=== PATIENT | male | born 1945 | race Caucasian/White ===

== ENCOUNTER 2016-08-12 14:12 | Emergency (ER) | payer OTHER ==
[~2016-08-12] VITALS: Ht 165.1 cm; Wt 56.2 kg
[2016-08-12 14:26] VITALS: BP 95/58; PULSE 78; RESP 16; TEMP 98.1; O2SAT 96
--- NOTE | 2016-08-12 14:34 | NUR ---
Patient to ER bed 02 to gown for evaluation. Side rails up. Report given to TIMOTHY Verdugo.
--- NOTE | 2016-08-12 14:53 | NUR ---
c/o right ear tinnitus,decresed hearing since Wednesday.hicup for three weeks. A&O,no distress noted.
--- NOTE | 2016-08-12 15:13 | NUR ---
Dr. Ch at bedside for evaluation
[2016-08-12 15:40] VITALS: BP 131/68; PULSE 85; RESP 16; TEMP 98.1; O2SAT 99
--- NOTE | 2016-08-12 15:40 | NUR ---
Patient given written and verbal discharge instructions and verbalizes understanding. ER MD discussed with patient the results and treatment provided. Given copies of tests performed in ER. Patient in stable condition. ID arm band removed. Rx of TRAZODONE given. Patient educated on pain management and to follow up with PMD. Pain Scale 0/10 Opportunity for questions provided and answered.
== END 2016-08-12 15:40 | disposition home or self-care (01) ==
LOC: SED 14:12
DX: R06.6 Hiccough (principal); H92.01 Otalgia, right ear; E11.9 Type 2 diabetes mellitus without complications; Z88.0 Allergy status to penicillin
CPT/HCPCS: 99283

== ENCOUNTER 2016-09-20 10:47 | Emergency (ER) | payer OTHER ==
[~2016-09-20] VITALS: Ht 165.1 cm; Wt 56.7 kg
[2016-09-20 10:58] VITALS: BP_SYST 134
--- NOTE | 2016-09-20 10:59 | NUR ---
DR. CARRILLO EXAMINING PT.
--- NOTE | 2016-09-20 11:02 | NUR ---
AMBULATED TO BED 6
--- NOTE | 2016-09-20 11:06 | NUR ---
Pt presents to ED c/o multiple bites from dog. Pt AAOx 4 occitan speaking only.Pt bitten by friend's dog. Lac noted to lower lip and skin tear to R cheek /multiple punctures on BLE.
[2016-09-20] MEDS ORDERED: BACITRACIN 1 GM OINT TP ONE (11:15)
--- NOTE | 2016-09-20 11:15 | NUR ---
Pt reports possible syncope s/p fall.
--- NOTE | 2016-09-20 11:20 | NUR ---
wounds cleansed. areas prepped for wound repair.
[2016-09-20] MEDS ORDERED: LIDOCAINE 1% 10 MG/ML, 20 ML MDV INJ ONE (11:45)
--- NOTE | 2016-09-20 11:47 | NUR ---
Pt receiving wound repair.
--- NOTE | 2016-09-20 12:00 | NUR ---
ANIMAL BITE FORM FAXED TO [facility].
[2016-09-20 12:50] VITALS: BP_SYST 134
--- NOTE | 2016-09-20 12:50 | NUR ---
Patient given written and verbal discharge instructions and verbalizes understanding. ER MD discussed with patient the results and treatment provided. Given copies of tests performed in ER. Patient in stable condition. ID arm band removed. Rx of DOXYCYCLINE given. Patient educated on pain management and to follow up with PMD. Pain Scale 0. Opportunity for questions provided and answered.
== END 2016-09-20 12:50 | disposition home or self-care (01) ==
LOC: SED 10:47
DX: S01.511A Laceration without foreign body of lip, initial encounter (principal); S70.311A Abrasion, right thigh, initial encounter; S50.811A Abrasion of right forearm, initial encounter; R03.0 Elevated blood-pressure reading, without diagnosis of hypertension; E11.9 Type 2 diabetes mellitus without complications; H40.9 Unspecified glaucoma; Z88.0 Allergy status to penicillin; W54.0XXA Bitten by dog, initial encounter; Y93.89 Activity, other specified; Y99.8 Other external cause status; Y92.89 Other specified places as the place of occurrence of the external cause
CPT/HCPCS: 40650; 70450; 99284; J2001

== ENCOUNTER 2016-11-07 16:35 | Inpatient (IN) | payer OTHER ==
[~2016-11-07] VITALS: Ht 165.1 cm; Wt 54.4 kg
[2016-11-07 16:45] VITALS: BP_SYST 99
[2016-11-07] MEDS ORDERED: KETOROLAC TROMETHAMINE 15 MG VIAL IVP ONE (17:15)
[2016-11-07] MEDS ORDERED: ONDANSETRON HCL 4 MG/2 ML VIAL IVP ONE (17:15)
[2016-11-07] MEDS ORDERED: METOCLOPRAMIDE HCL 10 MG/2 ML VIAL IVP ONE (17:15)
[2016-11-07 17:21] LABS: BILIRUBIN,URINE NEGATIVE (NEGATIVE); BLOOD, URINE NEGATIVE (NEGATIVE); CLARITY/URINE CLEAR (CLEAR); COLOR,URINE YELLOW (YELLOW); GLUCOSE,URINE NEGATIVE (NEGATIVE); KETONES,URINE TRACE (NEGATIVE); LEUKOCYTE ESTERASE ,URINE NEGATIVE (NEGATIVE); NITRITE, URINE NEGATIVE (NEGATIVE); PROTEIN URINE NEGATIVE (NEGATIVE); UROBILINOGEN,URINE 0.2 (0.2-1.0)
[2016-11-07] MEDS ORDERED: NACL 0.9% 1,000 ML IV ONE (17:30)
[2016-11-07 17:49] LABS: BASOPHILS # (AUTO) 0.1 K/uL (0.0-0.2); BASOPHILS % (AUTO) 0.9 % (0.0-2.0); EOSINOPHILS % (AUTO) 0.3 % (0.0-4.0); HEMATOCRIT 52.5 % (36-54); LYMPHOCYTES # (AUTO) 1.9 K/uL (1.0-5.5); LYMPHOCYTES % (AUTO) 12.2 % (20.5-51.5); MEAN CORPUSCULAR HEMOGLOBIN 30 pg (27-31); MEAN CORPUSCULAR HGB CONC 32 % (32-36); MEAN CORPUSCULAR VOLUME 92 fL (79.0-98.0); MONOCYTES # (AUTO) 0.5 K/uL (0.0-1.0); NEUTROPHILS # (AUTO) 12.7 K/uL (1.8-7.7); NEUTROPHILS % (AUTO) 83.6 % (40.0-70.0); PLATELET COUNT (AUTO) 196 K/uL (130-430); RED CELL DISTRIBUTION WIDTH 11.9 % (9.0-15.0); WHITE BLOOD COUNT (AUTO) 15.2 K/uL (4.8-10.8)
[2016-11-07 17:55] LABS: PROTHROMBIN TIME 10.5 SECS (9.5-12.5)
[2016-11-07 18:42] LABS: ANION GAP 7 (5-15); CALCIUM 9.7 mg/dL (8.4-11.0); CHLORIDE 101 mmol/L (98-107); CREATININE 1.03 mg/dL (0.55-1.30); GLUCOSE 150 mg/dL (70-99); POTASSIUM 3.5 mmol/L (3.5-5.1); SODIUM SERUM 136 mmol/L (136-145); UREA NITROGEN, BLOOD 16 mg/dL (8-21)
[2016-11-07 18:47] LABS: ALANINE AMINOTRANSFERASE 28 U/L (12-78); ALBUMIN 4.9 g/dL (3.4-4.8); AMYLASE 76 U/L (0-100); ASPARTATE AMINOTRANSFERASE 23 U/L (10-37); LIPASE 219 U/L (73-393); TOTAL BILIRUBIN 0.6 mg/dL (0.0-1.0); TOTAL PROTEIN, SERUM 8.4 g/dL (6.4-8.3)
[2016-11-07] MEDS ORDERED: metroNIDAZOLE 500 mg/NS 100 ML IV ONE (19:00)
[2016-11-07] MEDS ORDERED: LEVOFLOXACIN 500 MG/D5W 100 ML IV ONE (19:00)
[2016-11-07] MEDS ORDERED: ACETAMINOPHEN 325 MG TABLET PO PRN (19:15)
[2016-11-07] MEDS: D5/0.45 NS 1,000 ML IV SCH (19:30)
[2016-11-07] MEDS ORDERED: GLU500 PO (19:51)
[2016-11-07] MEDS ORDERED: INSULIN REGULAR, HUMAN 100 UNITS/ML, 10 ML VIAL (novoLIN R) SUBCUT PRN (20:00)
[2016-11-08] VITALS (7 sets, daily range): BP systolic 107–131
[2016-11-08] MEDS: D5/0.45 NS 1,000 ML IV SCH ×2 (03:44→13:00)
[2016-11-08 07:09] LABS: BASOPHILS # (AUTO) 0.2 K/uL (0.0-0.2); BASOPHILS % (AUTO) 1.4 % (0.0-2.0); HEMATOCRIT 44.7 % (36-54); HEMOGLOBIN 14.6 g/dL (14.0-18.0); LYMPHOCYTES # (AUTO) 1.3 K/uL (1.0-5.5); LYMPHOCYTES % (AUTO) 10.7 % (20.5-51.5); MEAN CORPUSCULAR HEMOGLOBIN 30 pg (27-31); MEAN CORPUSCULAR HGB CONC 33 % (32-36); MEAN CORPUSCULAR VOLUME 91 fL (79.0-98.0); MONOCYTES # (AUTO) 0.6 K/uL (0.0-1.0); MONOCYTES % (AUTO) 5.3 % (1.7-9.3); NEUTROPHILS % (AUTO) 82.6 % (40.0-70.0); PLATELET COUNT (AUTO) 161 K/uL (130-430); RED BLOOD CELL COUNT(AUTO) 4.92 MIL/uL (4.2-6.2); RED CELL DISTRIBUTION WIDTH 11.7 % (9.0-15.0); WHITE BLOOD COUNT (AUTO) 12.1 K/uL (4.8-10.8)
[2016-11-08 07:26] LABS: ANION GAP 6 (5-15); CHLORIDE 104 mmol/L (98-107); CREATININE 1.04 mg/dL (0.55-1.30); GLUCOSE 218 mg/dL (70-99); POTASSIUM 3.5 mmol/L (3.5-5.1); SODIUM SERUM 136 mmol/L (136-145); UREA NITROGEN, BLOOD 15 mg/dL (8-21)
[2016-11-08] MEDS ORDERED: chlorproMAZINE HCL 50 MG/ 2 ML AMP IM PRN (08:30)
[2016-11-08] MEDS: PANTOPRAZOLE SODIUM 40 MG/VIAL (PROTONIX) IVP SCH (08:33)
[2016-11-08] MEDS: LEVOFLOXACIN 500 MG/D5W 100 ML IV SCH (20:00)
[2016-11-08] MEDS: ONDANSETRON HCL 4 MG/2 ML VIAL IVP PRN (21:07)
[2016-11-09] MEDS: D5/0.45 NS 1,000 ML IV SCH ×2 (00:07→13:15)
[2016-11-09] MEDS: ONDANSETRON HCL 4 MG/2 ML VIAL IVP PRN (02:33)
[2016-11-09] MEDS: MORPHINE 2 MG/ML INJ. SYRINGE IVP PRN (02:34)
[2016-11-09 04:31] VITALS: BP_SYST 105
[2016-11-09 06:43] LABS: BASOPHILS % (AUTO) 0.3 % (0.0-2.0); EOSINOPHILS # (AUTO) 0.1 K/uL (0.0-0.4); EOSINOPHILS % (AUTO) 0.7 % (0.0-4.0); HEMATOCRIT 42.4 % (36-54); LYMPHOCYTES # (AUTO) 1.9 K/uL (1.0-5.5); LYMPHOCYTES % (AUTO) 22.6 % (20.5-51.5); MEAN CORPUSCULAR HEMOGLOBIN 31 pg (27-31); MEAN CORPUSCULAR HGB CONC 33 % (32-36); MEAN CORPUSCULAR VOLUME 93 fL (79.0-98.0); MONOCYTES # (AUTO) 0.5 K/uL (0.0-1.0); MONOCYTES % (AUTO) 5.8 % (1.7-9.3); NEUTROPHILS # (AUTO) 5.8 K/uL (1.8-7.7); NEUTROPHILS % (AUTO) 70.6 % (40.0-70.0); PLATELET COUNT (AUTO) 157 K/uL (130-430); RED BLOOD CELL COUNT(AUTO) 4.57 MIL/uL (4.2-6.2)
[2016-11-09 07:06] LABS: WHITE BLOOD COUNT (AUTO) 8.3 K/uL (4.8-10.8)
[2016-11-09 07:28] LABS: ALANINE AMINOTRANSFERASE 16 U/L (12-78); ANION GAP 5 (5-15); ASPARTATE AMINOTRANSFERASE 14 U/L (10-37); CALCIUM 7.7 mg/dL (8.4-11.0); CHLORIDE 108 mmol/L (98-107); CREATININE 1.02 mg/dL (0.55-1.30); GLUCOSE 187 mg/dL (70-99); POTASSIUM 3.7 mmol/L (3.5-5.1); SODIUM SERUM 141 mmol/L (136-145); TOTAL BILIRUBIN 0.9 mg/dL (0.0-1.0); UREA NITROGEN, BLOOD 8 mg/dL (8-21)
[2016-11-09 08:00] VITALS: BP_SYST 110
[2016-11-09] MEDS ORDERED: GASTROGRAFIN 120 ML ONE (09:06)
[2016-11-09] MEDS: PANTOPRAZOLE SODIUM 40 MG/VIAL (PROTONIX) IVP SCH (13:11)
[2016-11-09 16:56] VITALS: BP_SYST 123
[2016-11-09 20:11] VITALS: BP_SYST 120
[2016-11-09] MEDS: LEVOFLOXACIN 500 MG/D5W 100 ML IV SCH (20:11)
[2016-11-09] MEDS: INSULIN ASPART 100 UNITS/ML, 10 ML VIAL (NovoLOG) SUBCUT PRN (21:05)
[2016-11-10 00:16] VITALS: BP_SYST 121
[2016-11-10] MEDS: D5/0.45 NS 1,000 ML IV SCH ×3 (01:28→12:00)
[2016-11-10 04:21] VITALS: BP_SYST 112
[2016-11-10] MEDS: INSULIN ASPART 100 UNITS/ML, 10 ML VIAL (NovoLOG) SUBCUT PRN (06:18)
[2016-11-10 06:42] LABS: ANION GAP 4 (5-15); CALCIUM 8.1 mg/dL (8.4-11.0); CHLORIDE 107 mmol/L (98-107); CREATININE 0.94 mg/dL (0.55-1.30); GLUCOSE 191 mg/dL (70-99); POTASSIUM 3.4 mmol/L (3.5-5.1); SODIUM SERUM 140 mmol/L (136-145); UREA NITROGEN, BLOOD 7 mg/dL (8-21)
[2016-11-10 06:44] LABS: BASOPHILS % (AUTO) 0.3 % (0.0-2.0); EOSINOPHILS # (AUTO) 0.1 K/uL (0.0-0.4); EOSINOPHILS % (AUTO) 0.9 % (0.0-4.0); HEMATOCRIT 41.1 % (36-54); HEMOGLOBIN 13.7 g/dL (14.0-18.0); LYMPHOCYTES # (AUTO) 1.8 K/uL (1.0-5.5); LYMPHOCYTES % (AUTO) 21.4 % (20.5-51.5); MEAN CORPUSCULAR HEMOGLOBIN 31 pg (27-31); MEAN CORPUSCULAR HGB CONC 33 % (32-36); MEAN CORPUSCULAR VOLUME 91 fL (79.0-98.0); MONOCYTES # (AUTO) 0.6 K/uL (0.0-1.0); MONOCYTES % (AUTO) 7.4 % (1.7-9.3); NEUTROPHILS # (AUTO) 5.7 K/uL (1.8-7.7); PLATELET COUNT (AUTO) 157 K/uL (130-430); RED BLOOD CELL COUNT(AUTO) 4.49 MIL/uL (4.2-6.2); RED CELL DISTRIBUTION WIDTH 11.9 % (9.0-15.0); WHITE BLOOD COUNT (AUTO) 8.2 K/uL (4.8-10.8)
[2016-11-10 08:00] VITALS: BP_SYST 122
[2016-11-10] MEDS: PANTOPRAZOLE SODIUM 40 MG/VIAL (PROTONIX) IVP SCH (08:27)
[2016-11-10 12:31] VITALS: BP_SYST 109
[2016-11-10] MEDS ORDERED: NA PHOS,M-B/NA PHOS,DI-BA 118 ML (FLEET ENEMA) RC PRN (15:00)
[2016-11-10 16:18] VITALS: BP_SYST 141
[2016-11-10] MEDS: LEVOFLOXACIN 500 MG/D5W 100 ML IV SCH (17:54)
[2016-11-10] MEDS: LACTOBACILLUS RHAMNOSUS GG 1 CAP CAPSULE PO SCH (21:18)
[2016-11-10 21:34] VITALS: BP_SYST 107
[2016-11-11 00:26] VITALS: BP_SYST 118
[2016-11-11 04:11] VITALS: BP_SYST 118
[2016-11-11] MEDS: D5/0.45 NS 1,000 ML IV SCH ×3 (05:53→21:13)
[2016-11-11] MEDS: INSULIN ASPART 100 UNITS/ML, 10 ML VIAL (NovoLOG) SUBCUT PRN (05:55)
[2016-11-11 06:26] LABS: ANION GAP 5 (5-15); CHLORIDE 107 mmol/L (98-107); CREATININE 0.94 mg/dL (0.55-1.30); GLUCOSE 173 mg/dL (70-99); POTASSIUM 3.1 mmol/L (3.5-5.1); SODIUM SERUM 140 mmol/L (136-145); UREA NITROGEN, BLOOD 7 mg/dL (8-21)
[2016-11-11 06:32] LABS: BASOPHILS % (AUTO) 0.4 % (0.0-2.0); EOSINOPHILS # (AUTO) 0.1 K/uL (0.0-0.4); HEMATOCRIT 39.8 % (36-54); HEMOGLOBIN 13.1 g/dL (14.0-18.0); LYMPHOCYTES % (AUTO) 30.8 % (20.5-51.5); MEAN CORPUSCULAR HEMOGLOBIN 30 pg (27-31); MEAN CORPUSCULAR HGB CONC 33 % (32-36); MEAN CORPUSCULAR VOLUME 91 fL (79.0-98.0); MONOCYTES # (AUTO) 0.5 K/uL (0.0-1.0); MONOCYTES % (AUTO) 7.8 % (1.7-9.3); NEUTROPHILS # (AUTO) 3.8 K/uL (1.8-7.7); PLATELET COUNT (AUTO) 174 K/uL (130-430); RED BLOOD CELL COUNT(AUTO) 4.38 MIL/uL (4.2-6.2); RED CELL DISTRIBUTION WIDTH 11.6 % (9.0-15.0); WHITE BLOOD COUNT (AUTO) 6.4 K/uL (4.8-10.8)
[2016-11-11 08:00] VITALS: BP_SYST 106
[2016-11-11] MEDS: PANTOPRAZOLE SODIUM 40 MG/VIAL (PROTONIX) IVP SCH (10:03)
[2016-11-11] MEDS: LACTOBACILLUS RHAMNOSUS GG 1 CAP CAPSULE PO SCH ×2 (10:03→21:13)
[2016-11-11] MEDS ORDERED: POTASSIUM CHLORIDE 40 MEQ, MAGNESIUM SULFATE 2 GM in 0.45% NS 250 ML IV ONE (11:00)
[2016-11-11 13:11] VITALS: BP_SYST 106
[2016-11-11 16:04] VITALS: BP_SYST 107
[2016-11-11] MEDS: LEVOFLOXACIN 500 MG/D5W 100 ML IV SCH (20:08)
[2016-11-11 20:20] VITALS: BP_SYST 114
[2016-11-12] VITALS (7 sets, daily range): BP systolic 100–149
[2016-11-12 06:47] LABS: ANION GAP 4 (5-15); CALCIUM 8.1 mg/dL (8.4-11.0); CHLORIDE 108 mmol/L (98-107); CREATININE 0.93 mg/dL (0.55-1.30); GLUCOSE 175 mg/dL (70-99); POTASSIUM 3.6 mmol/L (3.5-5.1); SODIUM SERUM 140 mmol/L (136-145); UREA NITROGEN, BLOOD 6 mg/dL (8-21)
[2016-11-12 07:04] LABS: BASOPHILS % (AUTO) 0.4 % (0.0-2.0); EOSINOPHILS # (AUTO) 0.1 K/uL (0.0-0.4); EOSINOPHILS % (AUTO) 2.6 % (0.0-4.0); HEMATOCRIT 39.8 % (36-54); HEMOGLOBIN 13.4 g/dL (14.0-18.0); LYMPHOCYTES % (AUTO) 37.8 % (20.5-51.5); MEAN CORPUSCULAR HEMOGLOBIN 31 pg (27-31); MEAN CORPUSCULAR HGB CONC 34 % (32-36); MEAN CORPUSCULAR VOLUME 92 fL (79.0-98.0); MONOCYTES # (AUTO) 0.5 K/uL (0.0-1.0); MONOCYTES % (AUTO) 8.7 % (1.7-9.3); NEUTROPHILS # (AUTO) 2.8 K/uL (1.8-7.7); NEUTROPHILS % (AUTO) 50.5 % (40.0-70.0); PLATELET COUNT (AUTO) 170 K/uL (130-430); RED BLOOD CELL COUNT(AUTO) 4.33 MIL/uL (4.2-6.2); RED CELL DISTRIBUTION WIDTH 11.7 % (9.0-15.0); WHITE BLOOD COUNT (AUTO) 5.4 K/uL (4.8-10.8)
[2016-11-12] MEDS: D5/0.45 NS 1,000 ML IV SCH ×2 (08:02→18:08)
[2016-11-12] MEDS: PANTOPRAZOLE SODIUM 40 MG/VIAL (PROTONIX) IVP SCH (09:14)
[2016-11-12] MEDS: LACTOBACILLUS RHAMNOSUS GG 1 CAP CAPSULE PO SCH ×2 (09:14→20:10)
[2016-11-12] MEDS: ONDANSETRON HCL 4 MG/2 ML VIAL IVP PRN (14:24)
[2016-11-12] MEDS: MORPHINE 2 MG/ML INJ. SYRINGE IVP PRN (14:25)
[2016-11-12] MEDS: LACTULOSE 20 GM/30 ML UDC PO PRN (14:26)
[2016-11-12] MEDS: MAG-AL HYDROX/SIMETH 30 ML UDC PO PRN (18:14)
[2016-11-12] MEDS: LEVOFLOXACIN 500 MG/D5W 100 ML IV SCH (20:10)
[2016-11-13] VITALS (7 sets, daily range): BP systolic 91–108
[2016-11-13] MEDS: D5/0.45 NS 1,000 ML IV SCH (05:51)
[2016-11-13] MEDS: LACTOBACILLUS RHAMNOSUS GG 1 CAP CAPSULE PO SCH ×2 (09:40→21:37)
[2016-11-13] MEDS: PANTOPRAZOLE SODIUM 40 MG/VIAL (PROTONIX) IVP SCH (09:40)
[2016-11-13] MEDS: INSULIN ASPART 100 UNITS/ML, 10 ML VIAL (NovoLOG) SUBCUT PRN (12:29)
[2016-11-13] MEDS ORDERED: 0.45% NS 500 ML IV ONE (15:30)
[2016-11-13] MEDS: 0.45% NACL 1,000 ML IV SCH (16:09)
[2016-11-13] MEDS: LACTULOSE 20 GM/30 ML UDC PO PRN (22:49)
[2016-11-13] MEDS: MAG-AL HYDROX/SIMETH 30 ML UDC PO PRN (22:50)
[2016-11-14 00:05] VITALS: BP_SYST 111
[2016-11-14] MEDS: LEVOFLOXACIN 500 MG/D5W 100 ML IV SCH (00:26)
[2016-11-14 04:35] VITALS: BP_SYST 102
[2016-11-14] MEDS: LACTULOSE 20 GM/30 ML UDC PO PRN (04:49)
[2016-11-14] MEDS: MAG-AL HYDROX/SIMETH 30 ML UDC PO PRN (04:50)
[2016-11-14] MEDS: 0.45% NACL 1,000 ML IV SCH (05:44)
[2016-11-14 07:45] LABS: BASOPHILS # (AUTO) 0.1 K/uL (0.0-0.2); BASOPHILS % (AUTO) 1.3 % (0.0-2.0); EOSINOPHILS # (AUTO) 0.1 K/uL (0.0-0.4); EOSINOPHILS % (AUTO) 1.9 % (0.0-4.0); HEMATOCRIT 43.9 % (36-54); LYMPHOCYTES % (AUTO) 31.2 % (20.5-51.5); MEAN CORPUSCULAR HEMOGLOBIN 29 pg (27-31); MEAN CORPUSCULAR HGB CONC 32 % (32-36); MEAN CORPUSCULAR VOLUME 92 fL (79.0-98.0); MONOCYTES # (AUTO) 0.3 K/uL (0.0-1.0); MONOCYTES % (AUTO) 4.1 % (1.7-9.3); NEUTROPHILS # (AUTO) 4.1 K/uL (1.8-7.7); NEUTROPHILS % (AUTO) 61.5 % (40.0-70.0); PLATELET COUNT (AUTO) 196 K/uL (130-430); RED BLOOD CELL COUNT(AUTO) 4.78 MIL/uL (4.2-6.2); RED CELL DISTRIBUTION WIDTH 11.9 % (9.0-15.0); WHITE BLOOD COUNT (AUTO) 6.6 K/uL (4.8-10.8)
[2016-11-14 08:00] VITALS: BP_SYST 114
[2016-11-14 08:03] LABS: ANION GAP 3 (5-15); CHLORIDE 106 mmol/L (98-107); CREATININE 1.01 mg/dL (0.55-1.30); GLUCOSE 122 mg/dL (70-99); SODIUM SERUM 139 mmol/L (136-145); UREA NITROGEN, BLOOD 9 mg/dL (8-21)
[2016-11-14] MEDS: PANTOPRAZOLE SODIUM 40 MG/VIAL (PROTONIX) IVP SCH (08:17)
[2016-11-14] MEDS: LACTOBACILLUS RHAMNOSUS GG 1 CAP CAPSULE PO SCH (08:17)
== END 2016-11-14 10:53 | disposition home or self-care (01) | DRG 389 ==
LOC: SED 16:35 → SMU 18:57
PROVIDERS: ADMIT Internal Medicine; ATTEND Internal Medicine
DX: K56.60 Unspecified intestinal obstruction (principal); K57.92 Diverticulitis of intestine, part unspecified, without perforation or abscess without bleeding; K56.7 Ileus, unspecified; I10 Essential (primary) hypertension; E78.5 Hyperlipidemia, unspecified; H40.9 Unspecified glaucoma; K57.10 Diverticulosis of small intestine without perforation or abscess without bleeding; K21.9 Gastro-esophageal reflux disease without esophagitis; E11.9 Type 2 diabetes mellitus without complications; R06.6 Hiccough; D72.829 Elevated white blood cell count, unspecified; Z79.84 Long term (current) use of oral hypoglycemic drugs; Z88.0 Allergy status to penicillin
CPT/HCPCS: 36415; 74020-TC; 74245-TC; 80048; 80053; 81003; 82150-TC; 82962; 83605; 83690-TC; 83735-TC; 84100-TC; 85025; 85610-TC; 85730-TC; 87040-TC; 93005; 96361; 96365; 96375; 99285; C9113; J1815; J1885; J1956; J2270; J2405; J2765; J3230; J3475; J3480; J3490; J7030; Q9963

== ENCOUNTER 2017-01-14 17:40 | Emergency (ER) | payer OTHER ==
[~2017-01-14] VITALS: Ht 165.1 cm; Wt 54.0 kg
[~2017-01-14 17:40] MED LIST: GLU500 PO
[2017-01-14 18:14] VITALS: BP_SYST 123
[2017-01-14 21:55] VITALS: BP_SYST 125
== END 2017-01-14 21:55 | disposition home or self-care (01) ==
LOC: SED 17:40
DX: S90.112A Contusion of left great toe without damage to nail, initial encounter (principal); J06.9 Acute upper respiratory infection, unspecified; E11.9 Type 2 diabetes mellitus without complications; K21.9 Gastro-esophageal reflux disease without esophagitis; Z88.0 Allergy status to penicillin; Z79.899 Other long term (current) drug therapy; X58.XXXA Exposure to other specified factors, initial encounter; Y93.89 Activity, other specified; Y92.89 Other specified places as the place of occurrence of the external cause; Y99.8 Other external cause status
CPT/HCPCS: 71020-TC; 82962; 99284

== ENCOUNTER 2018-06-01 13:32 | Inpatient (IN) | payer OTHER ==
[~2018-06-01] VITALS: Ht 165.1 cm; Wt 57.6 kg
[2018-06-01 13:37] VITALS: BP_SYST 142
[2018-06-01] MEDS ORDERED: NACL 0.9% 1,000 ML IV ONE ×2 (14:00→15:45)
[2018-06-01] MEDS ORDERED: ONDANSETRON HCL 4 MG/2 ML VIAL IVP ONE (14:00)
[2018-06-01 14:30] LABS: ANION GAP 9 (5-15); CALCIUM 9.7 mg/dL (8.4-11.0); CHLORIDE 98 mmol/L (98-107); CREATININE 0.85 mg/dL (0.55-1.30); GLUCOSE 198 mg/dL (70-99); POTASSIUM 3.5 mmol/L (3.5-5.1); SODIUM SERUM 134 mmol/L (136-145); UREA NITROGEN, BLOOD 25 mg/dL (8-21)
[2018-06-01 14:35] LABS: ALANINE AMINOTRANSFERASE 31 U/L (12-78); ALBUMIN 4.5 g/dL (3.4-4.8); ASPARTATE AMINOTRANSFERASE 24 U/L (10-37); TOTAL BILIRUBIN 0.8 mg/dL (0.0-1.0)
[2018-06-01] MEDS ORDERED: METOCLOPRAMIDE HCL 10 MG/2 ML VIAL IVP ONE (14:45)
[2018-06-01 14:46] LABS: BASOPHILS # (AUTO) 0.1 K/uL (0.0-0.2); HEMATOCRIT 52.3 % (36-54); HEMOGLOBIN 17.3 g/dL (14.0-18.0); LYMPHOCYTES # (AUTO) 1.4 K/uL (1.0-5.5); LYMPHOCYTES % (AUTO) 9.4 % (20.5-51.5); MEAN CORPUSCULAR HEMOGLOBIN 30 pg (27-31); MEAN CORPUSCULAR HGB CONC 33 % (32-36); MEAN CORPUSCULAR VOLUME 91 fL (79.0-98.0); MONOCYTES # (AUTO) 0.7 K/uL (0.0-1.0); MONOCYTES % (AUTO) 4.5 % (1.7-9.3); NEUTROPHILS # (AUTO) 12.8 K/uL (1.8-7.7); NEUTROPHILS % (AUTO) 85.1 % (40.0-70.0); PLATELET COUNT (AUTO) 225 K/uL (130-430); RED BLOOD CELL COUNT(AUTO) 5.77 MIL/uL (4.2-6.2); RED CELL DISTRIBUTION WIDTH 12.4 % (9.0-15.0)
[2018-06-01] MEDS ORDERED: chlorproMAZINE HCL 50 MG/ 2 ML AMP IM ONE (15:00)
[2018-06-01] MEDS ORDERED: DIPHENHYDRAMINE INJ 50 MG/ML VIAL IVP ONE (15:00)
[2018-06-01 15:17] LABS: PROTHROMBIN TIME 9.9 SECS (9.5-12.5)
[2018-06-01] MEDS ORDERED: DILTIAZEM HCL 25 MG/5 ML VIAL IVP ONE (15:45)
[2018-06-01] MEDS ORDERED: D5NS 1,000 ML IV ONE (16:45)
[2018-06-01] MEDS ORDERED: DORZ10DR9 EACH EYE (17:33)
[2018-06-01] MEDS ORDERED: XALEYE OP (17:35)
[2018-06-01 17:36] VITALS: BP_SYST 124
[2018-06-01] MEDS ORDERED: ACETAMINOPHEN 325 MG TABLET PO PRN (19:30)
[2018-06-01] MEDS ORDERED: METOCLOPRAMIDE HCL 10 MG/2 ML VIAL IVP PRN (19:30)
[2018-06-01] MEDS ORDERED: MORPHINE 4 MG/ML INJ. SYRINGE IVP PRN ×2 (19:30)
[2018-06-01] MEDS ORDERED: DEXTROSE 50% JECT 50 ML DISP.SYRIN IVP PRN (19:30)
[2018-06-01] MEDS ORDERED: ONDANSETRON HCL 4 MG/2 ML VIAL IVP PRN (19:30)
[2018-06-01 20:30] VITALS: BP_SYST 131
[2018-06-01] MEDS: D5NS 1,000 ML IV SCH (20:30)
[2018-06-01 21:35] LABS: BILIRUBIN,URINE NEGATIVE (NEGATIVE); BLOOD, URINE NEGATIVE (NEGATIVE); CLARITY/URINE CLEAR (CLEAR); COLOR,URINE YELLOW (YELLOW); GLUCOSE,URINE TRACE (NEGATIVE); KETONES,URINE 3+ (NEGATIVE); LEUKOCYTE ESTERASE ,URINE NEGATIVE (NEGATIVE); NITRITE, URINE NEGATIVE (NEGATIVE); PH,URINE 5.5 (5.0-8.0); PROTEIN URINE NEGATIVE (NEGATIVE); UROBILINOGEN,URINE 0.2 (0.2-1.0)
[2018-06-01 21:53] LABS: BACTERIA,URINE RARE /HPF (None Seen); MUCUS,URINE None Seen /LPF (None Seen); RBC,URINE 0-3 /HPF (0-3); WBC,URINE 0-3 /HPF (0-3); YEAST,URINE None Seen /HPF (None Seen)
[2018-06-01] MEDS: INSULIN REGULAR, HUMAN 100 UNITS/ML, 10 ML VIAL (novoLIN R) SUBCUT PRN (23:11)
[2018-06-02 00:15] VITALS: BP_SYST 116
[2018-06-02] MEDS: D5NS 1,000 ML IV SCH ×3 (03:00→23:05)
[2018-06-02] MEDS: INSULIN REGULAR, HUMAN 100 UNITS/ML, 10 ML VIAL (novoLIN R) SUBCUT PRN ×3 (05:31→23:12)
[2018-06-02 08:00] VITALS: BP_SYST 111
[2018-06-02 09:27] LABS: MONOCYTES # (AUTO) 0.3 K/uL (0.0-1.0); MONOCYTES % (AUTO) 3.8 % (1.7-9.3)
[2018-06-02 09:30] LABS: BASOPHILS # (AUTO) 0.1 K/uL (0.0-0.2); BASOPHILS % (AUTO) 1.6 % (0.0-2.0); EOSINOPHILS % (AUTO) 0.2 % (0.0-4.0); HEMATOCRIT 44.5 % (36-54); HEMOGLOBIN 14.2 g/dL (14.0-18.0); LYMPHOCYTES # (AUTO) 1.6 K/uL (1.0-5.5); MEAN CORPUSCULAR HEMOGLOBIN 29 pg (27-31); MEAN CORPUSCULAR HGB CONC 32 % (32-36); MEAN CORPUSCULAR VOLUME 92 fL (79.0-98.0); NEUTROPHILS # (AUTO) 6.9 K/uL (1.8-7.7); NEUTROPHILS % (AUTO) 76.4 % (40.0-70.0); PLATELET COUNT (AUTO) 159 K/uL (130-430); RED BLOOD CELL COUNT(AUTO) 4.84 MIL/uL (4.2-6.2); RED CELL DISTRIBUTION WIDTH 13.1 % (9.0-15.0); WHITE BLOOD COUNT (AUTO) 8.9 K/uL (4.8-10.8)
[2018-06-02 09:35] LABS: ANION GAP 3 (5-15); CALCIUM 7.7 mg/dL (8.4-11.0); CHLORIDE 109 mmol/L (98-107); CREATININE 0.99 mg/dL (0.55-1.30); GLUCOSE 148 mg/dL (70-99); POTASSIUM 4.1 mmol/L (3.5-5.1); SODIUM SERUM 140 mmol/L (136-145); UREA NITROGEN, BLOOD 17 mg/dL (8-21)
[2018-06-02 09:40] LABS: ALANINE AMINOTRANSFERASE 19 U/L (12-78); ALBUMIN 2.7 g/dL (3.4-4.8); ASPARTATE AMINOTRANSFERASE 15 U/L (10-37); TOTAL BILIRUBIN 0.9 mg/dL (0.0-1.0)
[2018-06-02] MEDS ORDERED: FAMOTIDINE PF 20 MG/2 ML VIAL IVP ONE (10:15)
[2018-06-02] MEDS ORDERED: DIATR MEGLU/DIATRIZ SOD 30 ML SOLUTION PO ONE ×2 (10:47→10:48)
[2018-06-02] MEDS: MAG-AL HYDROX/SIMETH 30 ML UDC NG SCH ×3 (11:04→23:40)
[2018-06-02] MEDS ORDERED: MAG-AL HYDROX/SIMETH 30 ML UDC PO SCH (12:00)
[2018-06-02 12:47] VITALS: BP_SYST 127
[2018-06-02 16:28] VITALS: BP_SYST 135
[2018-06-02] MEDS: FAMOTIDINE PF 20 MG/2 ML VIAL IVP SCH (20:01)
[2018-06-02 20:10] VITALS: BP_SYST 123
[2018-06-02] MEDS ORDERED: COMMUNICATION ORDER XX ONE ×2 (21:30→22:15)
[2018-06-02] MEDS: THORAZINE (chlorproMAZINE) 25 MG TAB PO SCH (22:32)
[2018-06-03 00:31] VITALS: BP_SYST 104
[2018-06-03] MEDS: MAG-AL HYDROX/SIMETH 30 ML UDC NG SCH ×3 (05:31→17:21)
[2018-06-03] MEDS: THORAZINE (chlorproMAZINE) 25 MG TAB PO SCH (05:40)
[2018-06-03 06:46] LABS: BASOPHILS % (AUTO) 0.5 % (0.0-2.0); EOSINOPHILS % (AUTO) 0.5 % (0.0-4.0); HEMOGLOBIN 12.8 g/dL (14.0-18.0); LYMPHOCYTES # (AUTO) 1.7 K/uL (1.0-5.5); LYMPHOCYTES % (AUTO) 23.8 % (20.5-51.5); MEAN CORPUSCULAR HEMOGLOBIN 30 pg (27-31); MEAN CORPUSCULAR HGB CONC 33 % (32-36); MEAN CORPUSCULAR VOLUME 92 fL (79.0-98.0); MONOCYTES # (AUTO) 0.4 K/uL (0.0-1.0); MONOCYTES % (AUTO) 5.8 % (1.7-9.3); NEUTROPHILS % (AUTO) 69.4 % (40.0-70.0); PLATELET COUNT (AUTO) 139 K/uL (130-430); RED BLOOD CELL COUNT(AUTO) 4.22 MIL/uL (4.2-6.2); RED CELL DISTRIBUTION WIDTH 12.9 % (9.0-15.0); WHITE BLOOD COUNT (AUTO) 7.1 K/uL (4.8-10.8)
[2018-06-03 06:54] LABS: ALANINE AMINOTRANSFERASE 18 U/L (12-78); ALBUMIN 2.5 g/dL (3.4-4.8); ANION GAP 2 (5-15); ASPARTATE AMINOTRANSFERASE 13 U/L (10-37); CALCIUM 7.9 mg/dL (8.4-11.0); CHLORIDE 111 mmol/L (98-107); CREATININE 0.85 mg/dL (0.55-1.30); GLUCOSE 173 mg/dL (70-99); POTASSIUM 3.6 mmol/L (3.5-5.1); SODIUM SERUM 140 mmol/L (136-145); TOTAL BILIRUBIN 0.8 mg/dL (0.0-1.0); UREA NITROGEN, BLOOD 12 mg/dL (8-21)
[2018-06-03] MEDS ORDERED: THORAZINE (chlorproMAZINE) 25 MG TAB PO PRN (07:35)
[2018-06-03 08:00] VITALS: BP_SYST 116
[2018-06-03] MEDS: FAMOTIDINE PF 20 MG/2 ML VIAL IVP SCH ×2 (08:56→22:07)
[2018-06-03] MEDS: INSULIN REGULAR, HUMAN 100 UNITS/ML, 10 ML VIAL (novoLIN R) SUBCUT PRN (11:48)
[2018-06-03] MEDS: D5NS 1,000 ML IV SCH ×2 (12:16→21:08)
[2018-06-03 12:45] VITALS: BP_SYST 103
[2018-06-03 16:58] VITALS: BP_SYST 110
[2018-06-04] MEDS: MAG-AL HYDROX/SIMETH 30 ML UDC NG SCH ×4 (00:22→17:53)
[2018-06-04] MEDS: INSULIN REGULAR, HUMAN 100 UNITS/ML, 10 ML VIAL (novoLIN R) SUBCUT PRN ×2 (00:25→11:27)
[2018-06-04 02:28] VITALS: BP_SYST 122
[2018-06-04] MEDS: D5NS 1,000 ML IV SCH (06:28)
[2018-06-04 07:26] LABS: ALANINE AMINOTRANSFERASE 18 U/L (12-78); ALBUMIN 2.4 g/dL (3.4-4.8); ANION GAP 7 (5-15); ASPARTATE AMINOTRANSFERASE 15 U/L (10-37); CALCIUM 7.9 mg/dL (8.4-11.0); CHLORIDE 109 mmol/L (98-107); CREATININE 0.68 mg/dL (0.55-1.30); GLUCOSE 125 mg/dL (70-99); POTASSIUM 3.4 mmol/L (3.5-5.1); SODIUM SERUM 139 mmol/L (136-145); TOTAL BILIRUBIN 0.8 mg/dL (0.0-1.0); UREA NITROGEN, BLOOD 6 mg/dL (8-21)
[2018-06-04 07:28] LABS: BASOPHILS % (AUTO) 0.7 % (0.0-2.0); EOSINOPHILS # (AUTO) 0.1 K/uL (0.0-0.4); EOSINOPHILS % (AUTO) 1.1 % (0.0-4.0); HEMATOCRIT 41.5 % (36-54); HEMOGLOBIN 12.9 g/dL (14.0-18.0); LYMPHOCYTES # (AUTO) 1.8 K/uL (1.0-5.5); MEAN CORPUSCULAR HEMOGLOBIN 28 pg (27-31); MEAN CORPUSCULAR HGB CONC 31 % (32-36); MEAN CORPUSCULAR VOLUME 91 fL (79.0-98.0); MONOCYTES # (AUTO) 0.5 K/uL (0.0-1.0); MONOCYTES % (AUTO) 7.3 % (1.7-9.3); NEUTROPHILS # (AUTO) 4.4 K/uL (1.8-7.7); NEUTROPHILS % (AUTO) 64.9 % (40.0-70.0); PLATELET COUNT (AUTO) 136 K/uL (130-430); RED BLOOD CELL COUNT(AUTO) 4.55 MIL/uL (4.2-6.2); RED CELL DISTRIBUTION WIDTH 12.6 % (9.0-15.0); WHITE BLOOD COUNT (AUTO) 6.8 K/uL (4.8-10.8)
[2018-06-04 07:30] VITALS: BP_SYST 126
[2018-06-04] MEDS: FAMOTIDINE PF 20 MG/2 ML VIAL IVP SCH (08:30)
[2018-06-04] MEDS ORDERED: POTASSIUM CHLORIDE 10 MEQ TAB.PRT.SR PO ONE (09:30)
[2018-06-04 10:05] VITALS: BP_SYST 126; BP_SYST 136; BP_SYST 137
[2018-06-04 12:02] VITALS: BP_SYST 136
[2018-06-04] MEDS ORDERED: PRO40 PO (15:36)
[2018-06-04] MEDS ORDERED: METO-290 PO (15:37)
[2018-06-04] MEDS ORDERED: DOCU250C71 PO (15:37)
[2018-06-04 16:02] VITALS: BP_SYST 137
== END 2018-06-04 20:20 | disposition home or self-care (01) | DRG 389 ==
LOC: SED 13:32 → STU 16:32 → SMU 06-03 13:31
PROVIDERS: ADMIT Internal Medicine Hospice and Palliative Medicine; ATTEND Internal Medicine Hospice and Palliative Medicine
PROC: 0D9670Z Drainage of Stomach with Drainage Device, Via Natural or Artificial Opening (ICD-10-PCS; principal; 2018-06-01)
DX: K56.600 Partial intestinal obstruction, unspecified as to cause (principal); R65.10 Systemic inflammatory response syndrome (SIRS) of non-infectious origin without acute organ dysfunction; E11.9 Type 2 diabetes mellitus without complications; K21.9 Gastro-esophageal reflux disease without esophagitis; H40.9 Unspecified glaucoma; E86.0 Dehydration; Z74.01 Bed confinement status; Z88.0 Allergy status to penicillin
CPT/HCPCS: 36415; 74250-TC; 78264-TC; 80053; 81000-TC; 82962; 83605; 84484; 85025; 85610-TC; 85730-TC; 86886; 86900; 86901; 87040-TC; 93005; 96361; 96374; 96375; 99285; A9541; G0378; J1200; J1815; J2270; J2405; J2765; J3230; J3490; J7042; Q0161; Q9964

== ENCOUNTER 2019-05-25 13:25 | Emergency (ER) | payer OTHER ==
[~2019-05-25] VITALS: Ht 165.1 cm; Wt 54.4 kg
[~2019-05-25 13:25] MED LIST changes: +DOCU250C71 PO; +DORZ10DR9 EACH EYE; +METO-290 PO; +PRO40 PO; +XALEYE OP
[2019-05-25 14:02] VITALS: BP_SYST 105
--- NOTE | 2019-05-25 14:06 | NUR ---
Patient triaged and placed in waiting room. VSS and patient appears in no acute distress at this time. Accompanied by family, awaiting available bed, and MD notified of need for MSE.
--- NOTE | 2019-05-25 15:20 | NUR ---
BROUGHT BACK TO [facility] AND REPORT GIVEN TO KANWAL
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
--- NOTE | 2019-05-25 15:33 | NUR ---
ER Dr. Flower at bedside examining patient.
[2019-05-25 16:13] VITALS: BP_SYST 109
--- NOTE | 2019-05-25 16:13 | NUR ---
Patient given written and verbal discharge instructions and verbalizes understanding. ER MD Flower discussed with patient the results and treatment provided. Patient in stable condition. ID arm band removed. Rx of Motrin given. Patient educated on pain management and to follow up with PMD. Pain Scale 2. Opportunity for questions provided and answered. Medication side effect fact sheet provided.
== END 2019-05-25 16:13 | disposition home or self-care (01) ==
LOC: SED 13:25
DX: S30.0XXA Contusion of lower back and pelvis, initial encounter (principal); E11.9 Type 2 diabetes mellitus without complications; K21.9 Gastro-esophageal reflux disease without esophagitis; Z88.0 Allergy status to penicillin; Z79.84 Long term (current) use of oral hypoglycemic drugs; Z79.899 Other long term (current) drug therapy; V49.50XA Passenger injured in collision with unspecified motor vehicles in traffic accident, initial encounter; Y93.89 Activity, other specified; Y92.411 Interstate highway as the place of occurrence of the external cause; Y99.8 Other external cause status
CPT/HCPCS: 72100-TC; 99283